=== PATIENT | female | born 1990 | race Caucasian/White ===

== ENCOUNTER 2017-10-13 17:10 | Emergency (ER) | payer MEDICAID ==
[~2017-10-13] VITALS: Ht 165.1 cm; Wt 58.5 kg
[2017-10-13 18:05] VITALS: Ht 165.1 cm; Wt 58.5 kg
[2017-10-13 19:46] VITALS: BP 104/61
== END 2017-10-13 19:46 | disposition home or self-care (01) ==
LOC: ED 17:10
DX: J32.0 Chronic maxillary sinusitis (principal)
CPT/HCPCS: J1885

== ENCOUNTER 2017-11-12 23:32 | Emergency (ER) | payer MEDICAID ==
[~2017-11-12] VITALS: Ht 152.4 cm; Wt 59.9 kg
[2017-11-12 23:38] VITALS: Ht 152.4 cm; Wt 59.9 kg
[2017-11-13 01:06] VITALS: BP 107/44
== END 2017-11-13 01:07 | disposition home or self-care (01) ==
LOC: ED 23:32
DX: N75.1 Abscess of Bartholin's gland (principal)
CPT/HCPCS: J2001

== ENCOUNTER 2018-01-09 09:29 | Emergency (ER) | payer MEDICAID ==
[~2018-01-09] VITALS: Ht 160 cm; Wt 54.4 kg
[2018-01-09 09:33] VITALS: BP 130/97; Ht 160 cm; Wt 54.4 kg
== END 2018-01-09 10:52 | disposition home or self-care (01) ==
LOC: ED 09:29
DX: S93.402A Sprain of unspecified ligament of left ankle, initial encounter (principal); I10 Essential (primary) hypertension; W18.39XA Other fall on same level, initial encounter; Y93.89 Activity, other specified; Y92.89 Other specified places as the place of occurrence of the external cause; Y99.8 Other external cause status
CPT/HCPCS: J1885